=== PATIENT | male | born 1935 | race Caucasian/White ===

== ENCOUNTER → 2019-08-27 09:05 | Outpatient (BNVA) | payer MEDICARE, SELFPAY | PROVIDERS: Family Provider Nurse Practitioner Family; PCP Nurse Practitioner Family; Visit Provider Nurse Practitioner Family | DX: I10 Essential (primary) hypertension (principal); R53.83 Other fatigue; E78.5 Hyperlipidemia, unspecified; M54.9 Dorsalgia, unspecified | CPT/HCPCS: 80053; 80061; 84443; 85025 ==

== ENCOUNTER → 2020-02-26 10:28 | Outpatient (BNVA) | payer MEDICARE, SELFPAY | PROVIDERS: Family Provider Nurse Practitioner Family; PCP Nurse Practitioner Family; Visit Provider Registered Nurse | DX: M54.9 Dorsalgia, unspecified (principal) | CPT/HCPCS: 80053; 85025; 85651; 86038; 86140; 86431 ==

== ENCOUNTER → 2020-03-25 12:42 | Outpatient (BNVA) | payer MEDICARE, SELFPAY | PROVIDERS: Family Provider Nurse Practitioner Family; PCP Nurse Practitioner Family; Visit Provider Internal Medicine | DX: R76.8 Other specified abnormal immunological findings in serum (principal); M54.9 Dorsalgia, unspecified; D75.1 Secondary polycythemia; M96.1 Postlaminectomy syndrome, not elsewhere classified; R53.83 Other fatigue; Z87.891 Personal history of nicotine dependence; Z11.59 Encounter for screening for other viral diseases; Z51.81 Encounter for therapeutic drug level monitoring; D86.9 Sarcoidosis, unspecified | CPT/HCPCS: 36415; 72100; 82728; 83540; 86704; 86803; 87340; 99203 ==

== ENCOUNTER 2020-03-25 14:15 | Outpatient (CLI) | payer MEDICARE, SELFPAY ==
--- NOTE | 2020-03-25 14:23 | XR_ITS ---
WS: [id number] LUMBAR SPINE TECHNIQUE: 3 views of the lumbar spine CLINICAL INFORMATION: R76.8 - Other specified abnormal immunological findings in serum COMPARISON: None. FINDINGS: Osteopenia. Pedicle screw fixation L3-4 with interbody fusion graft. Disc space narrowing worse L4-L5 and L5-S1. Moderate facet arthropathy in the lower lumbar spine. Vascular calcification. XR/XR lumbar spine 2-3V* [id number] IMPRESSION: 1. Pedicle screw fixation L3-4 with interbody fusion graft 2. Disc space narrowing worse L4-L5 and L5-S1. 3. No acute appearing compression fractures.
== END 2020-03-25 14:16 | disposition home or self-care (01) ==
LOC: RADWPI 14:20
PROVIDERS: PCP Nurse Practitioner Family; Visit Provider Internal Medicine
DX: Z51.81 Encounter for therapeutic drug level monitoring (principal); R76.8 Other specified abnormal immunological findings in serum; D75.1 Secondary polycythemia; D86.9 Sarcoidosis, unspecified
CPT/HCPCS: 72100; 82728; 83540; 86704; 86803; 87340

== ENCOUNTER 2020-08-12 12:17 | Outpatient (CLI) | payer MEDICARE, SELFPAY ==
--- NOTE | 2020-08-12 13:30 | USCV_ITS ---
Bruce Rodarte Age: 85 Gender: M : 1935 Exam Date: 08/12/2020 12:37 Ordering Phys: Abbey Greenwood MD ([email or web address]) Technologist: Yesenia Hernandez [place]am [place] [facility] [place] Indication: SOB BP: / HR: 43 Rhythm: Other Technical Quality: Adequate MEASUREMENTS (Male / Female) Normal Values 2D ECHO LV Diastolic Diameter PLAX 3.9 cm 4.2 - 5.9 / 3.9 - 5.3 cm LV Systolic Diameter PLAX 1.8 cm LV Chamber Size 3.0 cm IVS Diastolic Thickness 1.0 cm 0.6 - 1.0 / 0.6 - 0.9 cm IVS Systolic Thickness 1.2 cm LVPW Diastolic Thickness 1.0 cm 0.6 - 1.0 / 0.6 - 0.9 cm LVPW Systolic Thickness 1.2 cm RV Chamber Size 3.6 cm LVOT Diameter 2.0 cm LV Ejection Fraction 2D Teich 85.2 % LV Ejection Fraction MOD 2C 56.1 % LV Ejection Fraction 2C AL 57.7 % LA Diameter 4.2 cm LA Width 3.7 cm LA Height 5.5 cm RA Width 4.5 cm RA Height 5.0 cm Aorta at Sinotubular Diameter 2.5 cm M-MODE LV Diastolic Diameter MM 3.4 cm 4.2 - 5.9 / 3.9 - 5.3 cm LV Systolic Diameter MM 2.2 cm LV Ejection Fraction MM Teich 66.1 % IVS Diastolic Thickness MM 0.9 cm 0.6 - 1.0 / 0.6 - 0.9 cm IVS Systolic Thickness MM 1.1 cm LVPW Diastolic Thickness MM 1.2 cm 0.6 - 1.0 / 0.6 - 0.9 cm LVPW Systolic Thickness MM 1.5 cm Aortic Annulus Diameter 3.1 cm LA Ao Ratio MM 1.5 MV E Point Septal Separation 0.9 cm DOPPLER AV Peak Velocity 130.0 cm/s LVOT Peak Velocity 68.0 cm/s AV Area Cont Eq vti 2.2 cm squared AV Area Cont Eq pk 1.7 cm squared MV Area PHT 5.6 cm squared MV E' Velocity 64.5 cm/s Mitral E to MV E' Ratio 17.5 Mitral E to LV E' Lateral Ratio 17.2 Mitral E to LV E' Septal Ratio 17.7 TR Peak Velocity 231.6 cm/s TR Peak Gradient 21.4 mmHg TR Mean Velocity 184.0 cm/s TR Mean Gradient 14.6 mmHg TR Velocity Time Integral 71.8 cm TV Peak E Velocity 66.0 cm/s Right Atrial Pressure 8.0 mmHg Pulmonary Artery Systolic Pressu 29.4 mmHg PV Peak Velocity 37.0 cm/s RV Acceleration Time 0.2 s RV Ejection Time 0.3 s RV AcT/ET 0.5 FINDINGS Left Ventricle Normal left ventricular cavity size. Normal left ventricular systolic function. No regional wall motion abnormalities. Left ventricular ejection fraction is estimated at 66 %. Right Ventricle Catheter/pacemaker wire visualized in the right ventricle. Normal right ventricular systolic function. Right Atrium Moderately increased right atrial size. Catheter/pacemaker wire in the right atrial cavity. Left Atrium Moderately increased left atrial size. Mitral Valve Structurally normal mitral valve without significant stenosis or prolapse. There is no mitral regurgitation. Aortic Valve Severe aortic valve calcification. Mild aortic valve stenosis, mean gradient 3.2 mmHg, GUERITA 2.2 cm squared. Trace aortic valve regurgitation. Tricuspid Valve Thickened tricuspid valve. Moderate tricuspid valve regurgitation. Pulmonic Valve Structurally normal pulmonic valve without significant stenosis. There is no pulmonic regurgitation. Pericardium Normal pericardium without effusion. Aorta Normal ascending aorta dimension. CONCLUSIONS 1-Normal left ventricular cavity size. Normal left ventricular systolic function. No regional wall motion abnormalities. Left ventricular ejection fraction is estimated at 66 %. 2-Catheter/pacemaker wire visualized in the right ventricle. Normal right ventricular systolic function. 3-Moderately increased left atrial size. 4-Severe aortic valve calcification. Mild aortic valve stenosis, mean gradient 3.2 mmHg, GUERITA 2.2 cm squared. Trace aortic valve regurgitation. 5-Thickened tricuspid valve. Moderate tricuspid valve regurgitation. 6-There is no pericardial effusion. 7-Right atrial pressure is around 5 mm of mercury. 8-There are no prior echocardiogram studies to compare. Abbey Greenwood MD (Electronically Signed) Final Date: 21 Aug 2020 19:04 S
== END 2020-08-12 12:18 | disposition home or self-care (01) ==
LOC: US 12:19
PROVIDERS: PCP Registered Nurse; Visit Provider Internal Medicine Cardiovascular Disease
DX: R06.02 Shortness of breath (principal); I08.2 Rheumatic disorders of both aortic and tricuspid valves; Z95.0 Presence of cardiac pacemaker
CPT/HCPCS: 93306

== ENCOUNTER 2020-08-17 08:20 | Outpatient (CLI) | payer MEDICARE, SELFPAY ==
[2020-08-17 08:42] VITALS: BMI 28.3
--- NOTE | 2020-08-17 08:46 | NMCV_ITS ---
NM larry perf SPECT r/s* [id number] Bruce Rodarte Age: 85 Gender: M : 1935 Exam Date: 08/17/2020 09:46 Ordering Phys: Abbey Greenwood MD ([email or web address]) Technologist: BRENDAN Villalta Exam Location: [facility] Indications: SHORTNESS OF BREATH STRESS TEST Please see separate stress test report in [facility] for full findings IMAGE PROTOCOL Rest/Stress 1 Day Radiopharmaceutical Dose (mCi) Administration Site Administered by Rest: Tc-99m 11.0 IV BRENDAN Montano Sestamibi Stress:Tc-99m 33.0 IV BRENDAN Montano Sestamibi Rest: 17-Aug-2020 60 Discovery 630 Stress: 17-Aug-2020 30 Discovery 630 0.4mg Lexiscan. Supine position only as patient was unable to lay prone. SPECT RESULTS Technical Quality: Excellent Raw Data Analysis: Normal Image Corrections: No attenuation or motion correction applied Summed Stress Score: 5 Summed Rest Score: 3 Summed Difference Score: 2 PERFUSION FINDINGS Small area of fixed perfusion defect surrounded by mild area of reversibility noted in distal anterolateral and apical wall suggestive of old myocardial infarction surrounded by small area of loy-infarct ischemia in the distal LAD territory. FUNCTIONAL RESULTS (calculated via Gated SPECT) Stress Image LV EF (%): 63 Stress EDV (mL):83 TID: 1.06 Stress ESV (mL):31 Rest Image LV EF (%): 63 FUNCTIONAL FINDINGS: There is normal left ventricular systolic function. IMPRESSIONS Small area of fixed perfusion defect surrounded by mild area of reversibility noted in distal anterolateral and apical wall suggestive of old myocardial infarction surrounded by small area of loy-infarct ischemia in the distal LAD territory. Abbey Greenwood MD (Electronically Signed) Final Date: 18 Aug 2020 18:13 S
--- NOTE | 2020-08-17 08:46 | ECG_ITS ---
[facility] Test Date: 2020-08-17 Pat Name: Bruce Rodarte Department: Room: Gender: Male Pe Manager: : 1935 Requested By: Abbey Greenwood Order Number: [id number] Arnulfo MD: ABBEY GREENWOOD Interpretive Statements NAME OF STUDY: LEXISCAN SESTAMIBI STRESS TEST INDICATION: Increasing Shortness of Breath NOTE: Please note that this is the electrocardiogram portion of the Lexiscan/Sestamibi stress test. The perfusion scan will be documented separately. DATA: Baseline heart rate was 66 beats per minute. Baseline blood pressure was 128/63 millimeters of mercury. Target heart rate was 137. Maximum heart rate achieved was 108. which was 78 % of the predicted target heart rate. Maximum blood pressure was 150/65 millimeters of mercury. The reason for ending the test was completion of the protocol. The patient did not experience any symptoms. ELECTROCARDIOGRAM: BASELINE: Atrial fibrillation. Paced rhythm. EXERCISE: After Lexiscan injection, no ST-T changes suggestive of ischemic noted. No arrhythmia noted. CONCLUSION: Please note due to baseline abnormality of the EKG specificity and sensitivity of the EKG portion of LexiScan MIBI stress test will be low 1. EKG not suggestive of ischemia 2. Lexiscan injection unremarkable. 3. Perfusion scan will be documented separately. Electronically Signed On 08-31-2020 19:33:04 CDT by ABBEY GREENWOOD [id number]
[2020-08-17] MEDS: regadenoson 0.4 Mg/5 ml Syringe IVP (11:15)
--- NOTE | 2020-08-17 11:16 | SUR.PREOP ---
Patient reports no pain or discomfort prior to the start of the procedure.
[2020-08-17 11:34] VITALS: BP 153/83; PULSE 68
== END 2020-08-17 08:21 | disposition home or self-care (01) ==
LOC: CDL 08:21
PROVIDERS: PCP Registered Nurse; Visit Provider Internal Medicine Cardiovascular Disease
DX: R06.02 Shortness of breath (principal)
CPT/HCPCS: 78452; 93017; A9500; J2785

== ENCOUNTER → 2020-10-01 09:28 | Outpatient (BNVA) | payer MEDICARE, SELFPAY | PROVIDERS: PCP Registered Nurse; Visit Provider Internal Medicine Cardiovascular Disease | DX: Z01.812 Encounter for preprocedural laboratory examination (principal); R07.9 Chest pain, unspecified; Z20.822 Contact with and (suspected) exposure to COVID-19 | CPT/HCPCS: 80048; 85025; 85610; 87635 ==

== ENCOUNTER 2020-10-07 13:09 | Observation (INO) | payer MEDICARE, SELFPAY ==
[2020-10-07] VITALS (43 sets, daily range): BP systolic 95–155; BP diastolic 30–110; PULSE 60–72; RESP 14–89; TEMP 36.6; O2SAT 88–96; BMI 28.3
--- NOTE | 2020-10-07 09:31 | XACV_ITS ---
Ht: 183 cm Wt: 95 kg BSA: 2.21 m2 Gender: Male : 1935 Any Known Allergies: Other Exam Priority: Routine Procedure(s): Procedure Description: Diagnostic procedure Procedure Description: PCI procedure Procedure Description: Venous Graft Catheterization Procedure Description: PTCA Procedure Description: Miscellaneous Procedure Description: ACT Procedure Description: Coronary Angiography Diagnostic Cath Status: Elective Diagnostic Findings * Left Main has no disease. * Right Coronary Artery has no disease. * Proximal Left Anterior Descending: total occlusion, LAN: 0 flow. * Left Internal Mammary Artery to Mid Left Anterior Descending graft: patent. * Proximal Circumflex to Mid Circumflex: total occlusion, LAN: 0 flow. * Ascending Aorta to 1st Diagonal graft: total occlusion, LAN: 0 flow. * Ascending Aorta to Second Obtuse Marginal Branch Segment graft: obstructive 70% stenosis, LAN: 3 flow. * Ascending Aorta to Second Obtuse Marginal Branch Segment graft: critical 95% stenosis, LAN: 3 flow. * Four grafts visualized. * Coronary angiography shows right dominance. PCI Status: Elective PCI Indication: New Onset Angina <= 2 months Interventional Findings * RCA was not engaged. Using JR 6 guide cougar wire was used to cross proximal and distal SVG to obtuse marginal lesion after little bit of difficulty in passing through distal lesion which appeared to be highly calcified. Despite of using multiple balloon ranging from 1.5-3.0mm ciompliant/ noncompliant, we were not able to open up the lesion. Despite of using guideliner renard wire and Runthrough wire, stent was not able to cross through the distal lesion. At this point we opted for medical management since it is highly calcified lesion, arthrectomy is not indicated neither scoring or sculpt balloon. Procedure remained unsuccessful due to not able to modify and cross the lesion with the stent. At the end of the procedure LAN-3 flow remains intact without any complication. SVG to obtuse marginal 2 stayed patent.. Conclusions 1. There is total occlusion coronary artery disease with two vessel disease. 2. Four coronary grafts visualized: one graft patent, two grafts diseased, and one graft occluded. 3. Patient has prior CABG. Recommendations * 1-Return to inpatient for close monitoring and routine cath care 2-Risk factor modification for secondary prevention 3-Statin and aspirin 81 mg life--long, if tolerated 4-Continue Plavix 75mg p.o. daily 5-Continue optimal medical management 6-Follow up with Dr. Greenwood in four weeks and your primary care in 10 days. Diagnostic RX Recommendation: medical therapy and/or counseling Pressures Phase:Rest AO : 123 / 46 ( 75 ) @ 10:28:00 AM 152 / 56 ( 92 ) @ 10:55:00 AM 149 / 56 ( 89 ) @ 11:22:00 AM Clinical Evaluation EBL: 5mL-10mL Procedural Details Procedure Consent Obtained. Pre-Procedure Time Out. Identified patient by full name and date of as verbalized by the patient/guarantor. Does the consent match the physician's order: Yes. Accurate & Complete Informed Consent: Yes. Inpatient/Outpatient History & Physical on Chart: Yes. If H&P is completed, is and addenduem needed: No; If yes, is the addendum complete: N/A. Visualize and Verify Site with Patient/Guarantor: N/A. Relevant Radiology Images available: N/A. Pre-op teaching completed and patient verbalized understanding. The risks, benefits, and alternatives of sedation and/or procedure were discussed by physician. The patient agrees to continue. Procedure started. [facility] Clinical Fraility Score: 3: Managing Well. 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 Chest Pain Symptom Assessment: Typical Angina Symptoms. Cardiovascular Instability: No. Correct patient, site and procedure confirmed by cath team. PERRLA. Strong, equal hand prosthetic assistant bilaterally. Lungs clear x 5 lobes. IV Site on Arrival: 20 gauge in the left anticubital. IV Fluids: 0.9% NaCl at KVO. 0 mL infused prior to label stamper. Pre Procedural Pulses: right dorsalis pedis was 1+. Pre Procedural Pulses: left dorsalis pedis was Doppled. Pre Procedural Pulses: right posterior tibial was Doppled. Pre Procedural Pulses: left posterior tibial was 1+. Pre Procedural Pulses: bilateral radial was 2+. Oxygen started at 2liters/min via nasal canula. right radial was prepped with chloroprep then draped in the usual sterile fashion. right groin was prepped with chloroprep then draped in the usual sterile fashion. Physician notified. Baseline sample Acquired. HR: 67 BPM. Equipment: 6F - Femoral. Cardiac Cath Pack. ACIST Manifold Kit Model BT 2000. Heparinized Saline (2 units/mL), 1000 mL bag. Kit, Micropuncture. Physician arrived. Physician scrubbed in. Immediate Pre-Procedure Time Out. Correct Patient: Yes; Correct Procedure: Yes; Correct Site: Yes; Correct Patient Position: Yes; Correct Supplies: Yes; Dried Flammable Prep: Yes; Blood Products Available: N/A;. Lidocaine 1% infiltrated to the right groin. Arterial access obtained with micropuncture set. A 5 iraqi JL4 catheter in over wire. Multiple views taken of left coronary artery. Catheter removed over the exchange wire. Inventory is CRD 6 FR XB 3.5 GUIDE. 6 iraqi XB 3.5 guide catheter was inserted over the wire. Guide catheter out. A 5 iraqi AL1 catheter in over wire. Catheter removed over the exchange wire. A 5 iraqi JR4 catheter in over wire. SVG's to Circumflex visualized and patent. SVG to Diaganol occluded. Catheter redirected to the QUIROGA. QUIROGA to LAD visualized. Side port of sheath attached to Normal Saline flush at KVO to maintain patency. Inventory is CRD 6FR JR 4 GUIDE 100cm. Catheter removed over the standard wire. AP pads applied to patient. 6 iraqi JR 4 guide catheter was inserted over the wire. Chamberlain guidewire was advanced through the guide catheter to lesion in the SVG to OM. MDT R ESTELA 4.0x8 REMY inserted to SVG to OM. Unable to cross lesion. Intact stent removed. Inflation number : 1 A AB TREK 3.00X08 RX BALLOON was prepped and advanced across the Undefined2 , then inflated to 12 MARISA for 0:10 seconds. Balloon out. Wire out. Inventory is CRD 6FR AL 1 GUIDE. Guide catheter out. 6 iraqi AL I guide catheter was inserted over the wire. ACT drawn. Results seconds. Therapeutic limits - pre-heparin administration 90-150 seconds and monitoring heparin during a vascular procedure >250 seconds. Guide catheter out. 6 iraqi JR 4 guide catheter was inserted over the wire. ACT failed. ACT drawn. Results 333 seconds. Therapeutic limits - pre-heparin administration 90-150 seconds and monitoring heparin during a vascular procedure >250 seconds. Runthrough guidewire was advanced through the guide catheter to lesion in the SVG to OM. Guideliner inserted through guide. MDHallie R ESTELA 4.0x8 REMY inserted to SVG to OM. Unable to cross lesion. Intact stent removed. Inflation number: 2 The AB TREK 3.00X08 RX BALLOON was reinflated across the Undefined2, to 12 MARISA for 0:07 seconds. Balloon out. Called Anesthesia to come assist. Spoke with Dr Amador, she will see if someone could come. Inflation number : 3 A AB MINI TREK 2.00X12 RX BALLOON was prepped and advanced across the Undefined2 , then inflated to 0 MARISA for 0:12 seconds. Inflation number: 4 The AB MINI TREK 2.00X12 RX BALLOON was reinflated across the Undefined2, to 12 MARISA for 0:12 seconds. Balloon out. 10 mg compazine IV by Priscila Barger RN. MDT R ESTELA 4.0x8 REMY inserted to SVG to OM. Unable to cross lesion. Intact stent removed. Anesthesia arrived. Inflation number : 5 A MDT NC EUPHORA RX 2.81E12VU BALLOON was prepped and advanced across the Undefined2 , then inflated to 12 MARISA for 0:15 seconds. Inflation number: 6 The MDT NC EUPHORA RX 2.09F39AD BALLOON was reinflated across the Undefined2, to 16 MARISA for 0:15 seconds. Balloon out. MDT R ESTELA 4.0x8 REMY inserted to SVG to OM. Unable to cross lesion. Intact stent removed. Inflation number : 7 A MDT NC EUPHORA RX 3.25U80US BALLOON was prepped and advanced across the Undefined2 , then inflated to 12 MARISA for 0:17 seconds. Inflation number: 8 The MDT NC EUPHORA RX 3.63I62YO BALLOON was reinflated across the Undefined2, to 12 MARISA for 0:10 seconds. Balloon out. Wire out. Guideliner out. Guide catheter out. Family updated. Dr. Greenwood scrubbed out. Sheath(s) sutured into position with 2-0 silk and sterile 4x4's and Op-site applied over the site. No oozing or signs and symptoms of hematoma noted. Arterial sheath flushed and connected to tranducer and pressure bag with heparinized saline. Post Procedure: Pulses reassessed and unchanged. PERRLA. Strong, equal hand prosthetic assistant bilaterally. No VTE prophylaxis required. Medication's Wasted: Other = Versed 1 mg. Medication's Wasted: Other = Fentanyl 75 mcg. Medication's Wasted: Heparin = 2000 units. Total IV fluids: 150 mL. Contrast type used: Omnipaque 300 mg/mL, 150 mL bottle. Post-op diagnosis: CAD. Complications: None. Estimated blood loss: 5mL-10mL. Procedure completed. Vital chart was stopped. Patient transferred by bed to 1st floor. Access Site Site: Right Femoral artery Sheath Size: 6 Fr Hemostasis Success: Unsuccessful Procedure Medications Start: 11:15 AM Stop: 11:15 AM Medication: Versed Amount: 1 mg Route: I.V. Start: 11:18 AM Stop: 11:18 AM Medication: Versed Amount: 1 mg Route: I.V. Start: 11:57 AM Stop: 11:57 AM Medication: Heparin Amount: 7000 units Route: I.V. Start: 12:01 PM Stop: 12:01 PM Medication: Aggrastat 12.5 mg/250 mL Amount: 48 ml Route: I.V. bolus Start: 12:04 PM Stop: 12:04 PM Medication: Aggrastat 12.5 mg/250 mL Amount: 17.1 ml/hr Route: I.V. drip Start: 12:06 PM Stop: 12:06 PM Medication: Versed Amount: 1 mg Route: I.V. Start: 12:14 PM Stop: 12:14 PM Medication: Zofran (ondansetron) Amount: 8 mg Route: I.V. Start: 12:18 PM Stop: 12:18 PM Medication: Pepcid Amount: 20 mg Route: I.V. Start: 12:34 PM Stop: 12:34 PM Medication: Fentanyl Amount: 25 mcg Route: I.V. I, the attending physician, have reviewed and verified all procedure medications. Yes, all medications given per verbal order History/Risk Factors Hypertension: Yes Dyslipidemia: No Peripheral Arterial Disease (PAD): No Myocardial Infarction (NE): No Obesity: No Renal Disease: No Tobacco Use: Former Prior Interventions PCI: No CABG: Yes Valve Surgery: No Report Signatures Finalized by Abbey Greenwood MD on 10/19/2020 07:28 PM
[2020-10-07] MEDS: diphenhydrAMINE 50 mg Capsule PO (10:12)
--- NOTE | 2020-10-07 10:52 | W.PM.OPSFHP ---
Same Day Surgery H&P Indication for Procedure/HPI DATE OF PROCEDURE: October 07, 2020 CHIEF COMPLAINT/INDICATIONFOR SURGICAL PROCEDURE: Abnormal stress test, worsening of shortness of breath with chest pressure PREOP DIAGNOSIS: Abnormal stress test worsening of shortness of breath and chest pressure PLANNED PROCEDRUE: Operation Date: 10/07/20 10:00 Proposed Procedures p left Cardiac Catheterization 17434 r07.89(Left) - Abbey Greenwood MD 85-year-old male past medical history significant for coronary disease atrial fibrillation hypertension hyperlipidemia COPD for worsening of shortness of breath and chest pressure despite of optimization of medicine underwent stress test which showed mild to moderate ischemia however patient continues to do worse therefore he was brought in for left heart cath. Patient has been explained all risk benefit and already for the procedure including stroke major minor bleed requiring transfusion and urgent emergent surgery. He would like to proceed with it. Medications/Allergies* Home Medications Medication Instructions Recorded Confirmed Type vitamins A,C,R-zifu-blnsqx 14,320 1 cap PO BID 04/11/19 10/07/20 History unit-226 mg-200 unit capsule aspirin 325 mg tablet 325 mg PO DAILY tab 03/24/20 10/07/20 History cholecalciferol (vitamin D3) 2,000 unit PO DAILY ml 07/20/20 10/07/20 History losartan 150 mg PO DAILY 10/07/20 10/07/20 History trazodone 100 mg PO DAILY 10/07/20 10/07/20 History Allergies/Adverse Reactions Allergy/AdvReac Type Severity Reaction Status Date / Time tolmetin Allergy Unknown Verified 08/17/20 08:42 Pertinent History/Comorbid Conditions* Medical History (Updated 07/24/20 @ 17:14 by Abbey Greenwood MD) Arthralgia of back Essential hypertension Fatigue Surgical History (Updated 02/26/20 @ 14:18 by GO Mccarthy) History of back surgery Rods in lumbar area. 15+ years ago. History of coronary artery bypass graft x 3 S/P cardiac pacemaker procedure Family History (Updated 04/11/19 @ 14:54 by Audra Campos LPN) Diabetes Mother Myocardial infarct Brother Father Lung cancer Brother Social History Smoking and tobacco status: former smoker Alcohol intake: never Lives independently: No Household members: spouse Housing: House Marital status: Current occupational status: retired Current gender identity: Male Pertinent Exam Findings alert, oriented x 3 and clear to auscultation bilaterally Conscious Sedation Assessment PATIENT ASSESSED PRIOR TO SEDATION, WITH NO CHANGE NOTED: Yes AIRWAY EVAL/ANESTHESIA PLAN: ASA II and Risks, benefits & alternatives of sedation and/or procedure discussed Recommendations Surgery/Procedure today Coding Level of Care Code Acute Bi Report Developer for Temo Prescott
[2020-10-07] MEDS: clopidogrel 300 mg Tablet PO (13:41)
[2020-10-07 16:08] LABS: Partial Thromboplastin Time 128.1 SECONDS (23.9-36.7)
[2020-10-07] MEDS: isosorbide mononitrate ER 30 mg Tablet 15 MG PO (18:09)
[2020-10-07] MEDS: amlodipine 5 mg Tablet PO (18:10)
[2020-10-07] MEDS: timolol 0.5% Op Soln 5 mL Btl 1 DROP EYE-BOTH (18:10)
[2020-10-07 18:15] LABS: Partial Thromboplastin Time 75.2 SECONDS (23.9-36.7)
--- NOTE | 2020-10-07 19:07 | PC.NURSE ---
reported PTT results to Dr crowder instructions received to pull sheath in 1 hour after last PTT
[2020-10-07] MEDS: metoclopramide 5 mg/mL SDV 2 mL IVP (19:59)
--- NOTE | 2020-10-07 20:13 | PC.NURSE ---
sheath removed at this time per Dr pedersen instructions min bleeding pressure held for 20 min patient had an episode of vomiting and Reglan was given mild bruising noted with no hematoma formation.
[2020-10-08] MEDS: sodium chloride 0.9% 1,000 ML 100 ML IV (00:31)
[2020-10-08 03:39] VITALS: BP 119/71; PULSE 60; RESP 20; TEMP 36.7; O2SAT 93
[2020-10-08 05:47] VITALS: PULSE 60
[2020-10-08 08:00] VITALS: BP 134/57; PULSE 60; RESP 18; O2SAT 92
[2020-10-08 08:37] LABS: Basophils # 0.1 10^3/uL (0.0-0.1); Basophils % 0.6 %; Eosinophils # 0.2 10^3/uL (0.0-0.8); Hematocrit 45.3 % (42.0-52.0); Hemoglobin 14.7 g/dL (11.7-16.6); Lymphocytes # 1.6 10^3/uL (0.8-4.8); Lymphocytes % 20.5 %; Mean Corpuscular HGB Conc 32.5 g/dL (30.0-36.0); Mean Corpuscular Hemoglobin 30.9 pg (28.0-34.0); Mean Corpuscular Volume 95.4 fL (80-94); Monocytes # 0.6 10^3/uL (0.2-0.9); Monocytes % 7.9 %; Neutrophils # 5.51 10^3/uL (1.8-7.7); Neutrophils % 68.9 %; Nucleated Red Blood Cells % 0 %; Platelet Count 163 10^3/cmm (130-400); Red Blood Count 4.75 10^6/uL (4.1-5.3); Red Cell Distribution Width 12.8 % (12.1-15.1)
[2020-10-08 09:01] LABS: Anion Gap 15.7 (5-19); Blood Urea Nitrogen 14 mg/dL (8-23); Calcium 8.8 mg/dL (8.5-10.5); Carbon Dioxide 26 mmol/L (22-29); Chloride 102 mmol/L (98-107); Glucose 159 mg/dL (65-115); Osmolality Calculated 292 mOsm/kg (285-295); Potassium 4.7 mmol/L (3.5-5.1); Sodium 139 mmol/L (136-145)
[2020-10-08] MEDS: amlodipine 5 mg Tablet PO (09:23)
[2020-10-08 09:24] VITALS: BP 134/57
[2020-10-08] MEDS: spironolactone 25 mg Tablet PO (09:24)
[2020-10-08] MEDS: losartan 50 mg Tablet 150 MG PO (09:24)
[2020-10-08] MEDS: isosorbide mononitrate ER 30 mg Tablet 15 MG PO (09:24)
[2020-10-08] MEDS: clotrimazole-betamethasone cream 15gm 1 APPLIC TOPICAL (09:25)
[2020-10-08] MEDS: timolol 0.5% Op Soln 5 mL Btl 1 DROP EYE-BOTH (09:25)
[2020-10-08] MEDS: clopidogrel 75 mg Tablet PO (09:29)
--- NOTE | 2020-10-08 09:46 | P.DS_ITS ---
Discharge Providers Date of Admission: 10/07/20 13:09 Date of Discharge: October 08, 2020 Attending Provider at Admission: Abbey Greenwood MD Attending Provider at Discharge: Abbey Greenwood MD Primary Care Provider: GO Mccarthy Reason for Visit Reason for Visit: [facility] Hospital Course Hospital Course For worsening of shortness of breath chest pain despite optimization of medicine patient with history of coronary artery disease status post bypass surgery underwent left heart cath he was noted to have chronically occluded LAD circumflex and RCA. SVG to diagonal was chronically occluded, SVG to obtuse marginal 1 was mid and distal 70 and 90% severe highly calcified stenosis QUIROGA to LAD was patent. Despite of multiple balloon angioplasty using noncompliant balloon ranging from 2.0-3.0 we were not able to dilate the lesion to cross with the stent. Due to highly calcified nature of the lesion and an old graft which was thought to be managed medically. We will start patient on ranolazine. Continue Plavix and aspirin for 1 month as patient has history of GI bleed. We will put him on Protonix. No overnight event happened. Right groin wound looks good no hematoma. Patient will be discharged today. Patient today he qualify for home O2 eval and treatment. He will be discharged home on oxygen. He is advised to follow-up with primary care physician for regular oxygen prescription. Physical Exam Narrative: EXAM NARRATIVE: GENERAL: Patient is alert, awake and oriented x3. NECK: No jugular vein distension. HEENT: No cyanosis. No icterus. No pallor. HEART: Regular S1 and S2. No murmur, rub or gallop. LUNGS: Clear to auscultate bilaterally. ABDOMEN: Soft, nontender and nondistended. Positive bowel sounds. No guarding, rebound or tenderness. CENTRAL NERVOUS SYSTEM: Grossly nonfocal. EXTREMITIES: Lower extremities without edema bilaterally. 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 Routin e Exams 10/07/20 09:31 Taken Labs from last 24 hours 10/08/20 10/08/20 10/07/20 08:29 08:29 17:38 WBC 8.0 RBC 4.75 Hgb 14.7 Hct 45.3 MCV 95.4 H MCH 30.9 MCHC 32.5 RDW 12.8 Plt Count 163 MPV 10.0 Neut % (Auto) 68.9 Lymph % (Auto) 20.5 [place] % (Auto) 7.9 Eos % (Auto) 2.0 Baso % (Auto) 0.6 Neut # (Auto) 5.51 Lymph # (Auto) 1.6 [place]in # (Auto) 0.6 Eos # (Auto) 0.2 Baso # (Auto) 0.1 Nucleated RBC % (a uto) 0 Nucleated RBCs # 0.0 APTT 75.2 H Sodium 139 Potassium 4.7 Chloride 102 Carbon Dioxide 26 Anion Gap 15.7 BUN 14 Creatinine 1.0 GFR Calculation Not Reportable Glucose 159 H Calculated Osmolal ity 292 Calcium 8.8 10/07/20 15:40 WBC RBC Hgb Hct MCV MCH MCHC RDW Plt Count MPV Neut % (Auto) Lymph % (Auto) [place] % (Auto) Eos % (Auto) Baso % (Auto) Neut # (Auto) Lymph # (Auto) [place]in # (Auto) Eos # (Auto) Baso # (Auto) Nucleated RBC % (a uto) Nucleated RBCs # APTT 128.1 H Sodium Potassium Chloride Carbon Dioxide Anion Gap BUN Creatinine GFR Calculation Glucose Calculated Osmolal ity Calcium Vitals: Last Vital Signs Temp 98.1 F 10/08/20 03:39 Pulse 60 10/08/20 08:00 Resp 18 10/08/20 08:00 BP 134/57 10/08/20 09:24 Pulse Ox 92 10/08/20 08:00 Discharge Plan Discharge Patient Disposition: Home Condition: Stable Prescriptions: New ranolazine 500 mg tablet extended release 12 hr 500 mg PO BID Qty: 60 RF: 6 clopidogrel 75 mg tablet 75 mg PO DAILY Qty: 30 RF: 3 Adult Aspirin Regimen 81 mg tablet,delayed release (DR/EC) 81 mg PO DAILY Qty: 30 RF: 4 Protonix 40 mg tablet,delayed release (DR/EC) 40 mg PO DAILY Qty: 90 RF: 2 Continued PreserVision AREDS [id number] [id number] capsule 1 cap PO BID RF: 0 cholecalciferol (vitamin D3) 50 mcg/drop (2, 000 unit/drop) drops 2,000 unit PO DAILY RF: 0 clotrimazole-betamethasone 1-0.05 % cream 1 applic topical BID 14 Days Qty: 45 RF: 0 isosorbide mononitrate 30 mg tablet extended release 24 hr 15 mg PO BID Qty: 90 RF: 3 amlodipine 5 mg tablet 5 mg PO BID Qty: 180 RF: 3 polyethylene glycol 3350 [Miralax] 17 gram/dose powder 17 g PO DAILY Qty: 119 RF: 3 tramadol 50 mg tablet 50 mg PO DAILY PRN (Reason: pain) 30 Days Qty: 30 RF: 1 spironolactone 25 mg tablet 25 mg PO DAILY Qty: 90 RF: 3 timolol maleate 0.5 % drops See Rx Instructions .ROUTE .COMPLEX Qty: 5 RF: 0 trazodone 100 mg tablet 100 mg PO DAILY RF: 0 losartan 100 mg tablet 150 mg PO DAILY RF: 0 Discontinued aspirin 325 mg tablet 325 mg PO DAILY RF: 0 Discharge Orders: Discharge Order (Routine); Ordered 10/08/20 Ordered By: Abbey Greenwood Other Ambulatory Orders: DME: Oxygen (Order) Location: None Selected Ordered By: Abbey Greenwood Referrals: [facility] [place] [Outside] Abbey Greenwood MD [Physician] - 11/12/20 10:30 am (You have a cardiaology followup with Dr. Greenwood at [facility] on November 12 at 10:30am) Donna Villalta FNP [Nurse Practitioner] - 10/20/20 10:30 am (You have a post procedure followup with GO Romo at [facility] on October 20 at 10:30am) Patient Instructions: Clopidogrel (By mouth), Pantoprazole (By mouth), Ranolazine (By mouth), Left Heart Catheterization (DC), Using Oxygen at Home (DC), Opioid Safety, Post Angiogram Home Care Instructions Discharge Attestations Time Spent in Discharge Care*: less than 30 min Quality Metrics Clinical Quality Measures During this hospital stay, did patient experience: None Coding Level of Care Code Established Pt Acute Chg FW DC note Patient Type Established History Detailed Exam Detailed Medical Decision Making Moderate Complexity
[2020-10-08 10:42] VITALS: O2SAT 85; O2SAT 94
--- NOTE | 2020-10-08 12:08 | PC.CHAP ---
Pastoral Care Encounter/Spiritual Assessment Type of Contact [] Declined ux research associate visit [] Patient/Family/Request visit [] Outpatient visit [] Follow-up visit [] Physician referral [] Code/Alert [xx] Routine visit [] Staff referral [] Actively dying [] Patient sleeping [] Family support [] [] Out of room [] Palliative care [] [] Receiving care in room [] Pre-surgical visit [] Trauma [] Long length of stay [] ICU visit [] Other: Relational/Emotional Strength [xx] Patient feels connected with others/family/visitors/staff [] Distress [] Loneliness/isolation [] Abandonment Spirituality of Patient [xx] Person of Anju [xx] Attends Yarsani of their Anju [xx] Believes in Prayer [xx] Reads Bible or Confucianism materials [] There are Spiritual issues to be addressed Plate Colorer Interventions [xx] Prayer [xx] Active listening [xx] Non-anxious presence [] Spiritual/emotional support [] Crisis/trauma care [] Spiritual counseling [] Bereavement support [] Provided bereavement packet [] Provided Bible/devotional materials [] Provided toy/stuffed animal, coloring book to patient or family member [] Provided Communion [] Anointing/[place] [] Salvation [xx] Completed spiritual assessment [] Other: Impact on Illness or Injury [] Angry [] Fearful [] Anxious [] Often cries [] Exhaustion [] Unable to work [] Unable to attend temple [] Unable to walk/stand [] Unable to read [] Unable to drive [] Unable to eat/drink [] Unable to sleep [] Unable to be with family [] Patient intubated [] Other: Summary Patient's was present. Patient stated they have been almost 67 years and they are proud of that accomplishment and more in love now than ever. Time spent with patient 7 minutes
[2020-10-08 13:17] VITALS: BP 134/57
--- NOTE | 2020-10-08 14:09 | PC.NURSE ---
discharge instructions given and explained to pt and .they verb understanding of instructions.discharged via w/c to exit.spouse to drive pt home.
== END 2020-10-08 14:09 | disposition home or self-care (01) ==
LOC: CSU 13:11
PROVIDERS: Admitting Provider Internal Medicine Cardiovascular Disease; PCP Registered Nurse; Visit Provider Internal Medicine Cardiovascular Disease
DX: I25.10 Atherosclerotic heart disease of native coronary artery without angina pectoris (principal); I25.82 Chronic total occlusion of coronary artery; R94.39 Abnormal result of other cardiovascular function study; R07.89 Other chest pain; R06.02 Shortness of breath; Z95.1 Presence of aortocoronary bypass graft; J44.9 Chronic obstructive pulmonary disease, unspecified; Z79.82 Long term (current) use of aspirin; I10 Essential (primary) hypertension; Z95.0 Presence of cardiac pacemaker; Z82.49 Family history of ischemic heart disease and other diseases of the circulatory system; Z87.891 Personal history of nicotine dependence
CPT/HCPCS: 36415; 80048; 85025; 85347; 85730; 92920; 93455; C1725; C1769; C1887; C1894; G0378; J0780; J1644; J2250; J2405; J2765; J3010; J3246; J3490; J7030; Q0163; Q9967

== ENCOUNTER → 2020-10-20 11:25 | Outpatient (BNVA) | payer MEDICARE, SELFPAY | PROVIDERS: PCP Registered Nurse; Visit Provider Nurse Practitioner Family | DX: Z95.1 Presence of aortocoronary bypass graft (principal); I10 Essential (primary) hypertension; Z87.891 Personal history of nicotine dependence | CPT/HCPCS: 80048 ==

== ENCOUNTER → 2020-11-03 09:43 | Outpatient (BNVA) | payer MEDICARE, SELFPAY | PROVIDERS: PCP Registered Nurse; Visit Provider Nurse Practitioner Family | DX: D75.1 Secondary polycythemia (principal) | CPT/HCPCS: 85025 ==

== ENCOUNTER → 2021-01-31 10:17 | Outpatient (BNVA) | payer MEDICARE, SELFPAY | PROVIDERS: PCP Registered Nurse; Visit Provider Internal Medicine Cardiovascular Disease | DX: R06.02 Shortness of breath (principal) | CPT/HCPCS: 80048; 83735; 83880 ==